=== PATIENT | male | born 1980 | race Caucasian/White ===

== ENCOUNTER 2017-11-04 17:46 | Emergency (ER) | payer OTHER, SELFPAY ==
[2017-11-04 17:47] VITALS: BP 168/70; PULSE 74; RESP 16; TEMP 36.9; O2SAT 99; BMI 28.5
--- NOTE | 2017-11-04 18:18 | PC.NURSE ---
brenton from pharmacy called back as is going to call us back
--- NOTE | 2017-11-04 18:27 | HMH.EDGENADL ---
ED Disposition Clinical Impression: Needle stick injury with contaminated needle Disposition: Home, Self-Care Condition on Discharge: Good Additional Instructions: See Dr. Dumont in one to two days for further recommendations regarding your current medication regimen as well as to review appropriate intervals for repeat laboratory testing. You are ok to return to work duties as per usual. Recommend strict condom use/safe sex practices until otherwise counseled by your primary care physician following interval testing. Rx's for HIV have been written, and follow up with Dr. Dumont if you are experiencing any side effects that may prevent you from being able to take the prescribed medications in the appropriate time intervals. Prescriptions: Emtricitabine/Tenofovir (Tdf) [Truvada 200/300 mg Tablet] 1 each PO ONCE #30 tab NS Raltegravir Potassium [Isentress 400mg] 400 mg PO BID #60 tab NS Referrals: Christiano Dumont MD [Primary Care Provider] - - Critical Care Critical Care Time: No Attestation: On 11/04/17, the high probability of a clinically significant, sudden or life threatening deterioration of the following system(s) required my full and direct attention, intervention and personal management. The time I documented below is in addition to time spent performing reported procedures but includes the following listed in this critical care notation. Medical Decision Making Vital Signs: 11/04/17 17:47 Temperature 98.5 F Temperature Source Oral Pulse Rate [Left Brachial] 74 Respiratory Rate 16 Blood Pressure [Right Arm] 168/70 Blood Pressure Mean [Right Arm] 102 Blood Pressure Source [Right Arm] Automatic Cuff Blood Pressure Position [Right Arm] Sitting 02 Sat by Pulse Oximetry 99 Oxygen Delivery Method Room Air - Lab Data Lab results reviewed: Yes: I reviewed the patient's lab results. Lab Results 11/04/17 18:10: WBC 6.6, RBC 5.21, Hgb 16.1, Hct 49.0, MCV 94.0, MCH 31.0, MCHC 32.9, RDW 12.2, Plt Count 299, MPV 8.0, Neut % (Auto) 65.9, Lymph % (Auto) 26.2, [place] % (Auto) 5.9, Eos % (Auto) 1.1, Baso % (Auto) 0.8, Neut # (Auto) 4.4, Lymph # (Auto) 1.7, [place] # (Auto) 0.4, Eos # (Auto) 0.1, Baso # (Auto) 0.1 11/04/17 18:10: HIV 1&2 Antibody Rapid Non-reactive Reviewed. Other labs are send out. Result diagrams: 11/04/17 18:10 Orders (Tests/Meds): ED MEDICATIONS Discontinued Medications Generic Name Dose Route Start Last Admin Trade Name Dipesh PRN Reason Stop Dose Admin Emtricitabine/Tenofovir 1 each 11/04/17 18:46 11/04/17 18:49 Truvada 200/300 Mg Tablet PO 11/04/17 18:47 1 each ONCE ONE Administration Raltegravir 400 mg 11/04/17 18:47 11/04/17 18:49 Isentress 400mg PO 11/04/17 18:48 400 mg ONCE ONE Administration ORDERS Category Date Time Status Comprehensive Metabolic Panel Stat Lab 11/04/17 18:11 Ordered HBsAg Screen Stat Lab 11/04/17 18:11 Ordered HCV RT-PCR, Quant (Non-Graph) Stat Lab 11/04/17 18:11 Ordered HIV Panel [id number] Stat Lab 11/04/17 18:11 Ordered - Scott Inquiry Pt receiving controlled substance: No Medical Decision Making Narrative: I consulted with pharmacist computer applications instructor to review HIV prophylaxis dosing and confirmed Truvada and Isintress now and Rx's for same. I have ordered these medications to be administered now in the ED in terms of initial dose as recommended. I have reviewed the risks vs. benefits of HIV prophylaxis. The index patient's old labs have been reviewed and she likely has Hep B and tested positive for Hep C antibodies, which puts her also in a high risk category for HIV. It is possible for her to test negative and not yet have seroconverted to HIV. I feel that my patient, Mr. Summers, is at risk for HIV exposure today. I have recommended prophylaxis at this time to the patient, and reviewed side effects and need for follow up testing regarding Hep C and HIV exposure, as well as strict condom use until cleared by his PCP following inte
[2017-11-04 18:30] LABS: Basophils # 0.1 K/mm3 (0-0.2); Basophils % 0.8 % (0.1-2.0); Eosinophils # 0.1 K/mm3 (0.0-0.4); Eosinophils % 1.1 % (0.1-12.0); Hemoglobin 16.1 g/dL (14.1-18.0); Lymphocytes # 1.7 K/mm3 (0.7-4.5); Lymphocytes % 26.2 K/mm3 (10-50); Mean Corpuscular HGB Conc 32.9 g/dL (31.8-35.4); Monocytes # 0.4 K/mm3 (0.1-1.0); Monocytes % 5.9 % (1.7-9.3); Neutrophils # 4.4 K/mm3 (1.8-7.8); Neutrophils % 65.9 % (37.0-80.0); Platelet Count 299 K/mm3 (142-424); Red Blood Count 5.21 M/mm3 (4.60-6.20); Red Cell Distribution Width 12.2 % (11.5-17.5); White Blood Count 6.6 K/mm3 (4.8-10.8)
--- NOTE | 2017-11-04 18:44 | ED_ITS ---
ED Disposition Clinical Impression: Needle stick injury with contaminated needle Disposition: Home, Self-Care Condition on Discharge: Good Additional Instructions: See Dr. Dumont in one to two days for further recommendations regarding your current medication regimen as well as to review appropriate intervals for repeat laboratory testing. You are ok to return to work duties as per usual. Recommend strict condom use/safe sex practices until otherwise counseled by your primary care physician following interval testing. Rx's for HIV have been written, and follow up with Dr. Dumont if you are experiencing any side effects that may prevent you from being able to take the prescribed medications in the appropriate time intervals. Prescriptions: Emtricitabine/Tenofovir (Tdf) [Truvada 200/300 mg Tablet] 1 each PO ONCE #30 tab NS Raltegravir Potassium [Isentress 400mg] 400 mg PO BID #60 tab NS Referrals: Christiano Dumont MD [Primary Care Provider] - - Critical Care Critical Care Time: No Attestation: On 11/04/17, the high probability of a clinically significant, sudden or life threatening deterioration of the following system(s) required my full and direct attention, intervention and personal management. The time I documented below is in addition to time spent performing reported procedures but includes the following listed in this critical care notation. Medical Decision Making Vital Signs: 11/04/17 17:47 Temperature 98.5 F Temperature Source Oral Pulse Rate [Left Brachial] 74 Respiratory Rate 16 Blood Pressure [Right Arm] 168/70 Blood Pressure Mean [Right Arm] 102 Blood Pressure Source [Right Arm] Automatic Cuff Blood Pressure Position [Right Arm] Sitting 02 Sat by Pulse Oximetry 99 Oxygen Delivery Method Room Air - Lab Data Lab results reviewed: Yes: I reviewed the patient's lab results. Lab Results 11/04/17 18:10: WBC 6.6, RBC 5.21, Hgb 16.1, Hct 49.0, MCV 94.0, MCH 31.0, MCHC 32.9, RDW 12.2, Plt Count 299, MPV 8.0, Neut % (Auto) 65.9, Lymph % (Auto) 26.2 , [place] % (Auto) 5.9, Eos % (Auto) 1.1, Baso % (Auto) 0.8, Neut # (Auto) 4.4, Lymph # (Auto) 1.7, [place] # (Auto) 0.4, Eos # (Auto) 0.1, Baso # (Auto) 0.1 11/04/17 18:10: HIV 1&2 Antibody Rapid Non-reactive Reviewed. Other labs are send out. Result diagrams: 11/04/17 18:10 Orders (Tests/Meds): ED MEDICATIONS Discontinued Medications Generic Name Dose Route Start Last Admin Trade Name Dipesh PRN Reason Stop Dose Admin Emtricitabine/Tenofovir 1 each 11/04/17 18:46 11/04/17 18:49 Truvada 200/300 Mg Tablet PO 11/04/17 18:47 1 each ONCE ONE Administration Raltegravir 400 mg 11/04/17 18:47 11/04/17 18:49 Isentress 400mg PO 11/04/17 18:48 400 mg ONCE ONE Administration ORDERS Category Date Time Status Comprehensive Metabolic Panel Stat Lab 11/04/17 18:11 Ordered HBsAg Screen Stat Lab 11/04/17 18:11 Ordered HCV RT-PCR, Quant (Non-Graph) Stat Lab 11/04/17 18:11 Ordered HIV Panel [id number] Stat Lab 11/04/17 18:11 Ordered - Scott Inquiry Pt receiving controlled substance: No Medical Decision Making Narrative: I consulted with pharmacist radiation control worker to review HIV prophylaxis dosing and confirmed Truvada and Isintress now and Rx's for same. I have ordered these medications to be administered now in the ED in terms of initial dose as recom
[2017-11-04 18:56] LABS: HIV AB(1/2) Exposures Non-Reactive (Non-Reactiv)
[2017-11-04 19:06] LABS: Alanine Aminotransferase 44 U/L (12-78); Albumin Level 4.9 gm/dL (3.4-5.0); Albumin/Globulin Ratio 1.2 (1.1-1.8); Alkaline Phosphatase 106 U/L (46-116); Anion Gap 13.9 mEq/L (5-15); Aspartate Amino Transferase 24 U/L (15-37); Bilirubin,Total 0.4 mg/dL (0.2-1.0); Blood Urea Nitrogen 13 mg/dL (7-18); Calcium 9.4 mg/dL (8.5-10.1); Carbon Dioxide 29 mmol/L (21.0-32.0); Chloride 102 mmol/L (98-107); Creatinine Clearance Estimated 132 mL/min (0-300); Creatinine,Serum 1.14 mg/dL (0.70-1.30); Estimated Glomerular Filt Rate 73 ml/min (>60); GFR (African American) 88 ML/MIN (>60); Globulin 4.1 gm/dl (1.3-3.2); Glucose 99 mg/dL (74-106); Potassium 3.9 mmoL/L (3.5-5.1); Sodium 141 mmol/L (136-145)
[2017-11-04 19:13] VITALS: BP 152/70; PULSE 85; RESP 14; TEMP 36.7; O2SAT 98
[2017-11-06 06:20] LABS: HIV Screen 4th Generation wRfx Non Reactive (Non Reactive)
[2017-11-07 17:14] LABS: Hepatitis B Surface Antigen Negative (Negative)
== END 2017-11-04 19:15 | disposition home or self-care (01) ==
PROVIDERS: Emergency Provider Emergency Medicine; Family Provider Family Medicine; PCP Family Medicine
DX: S61.230A Puncture wound without foreign body of right index finger without damage to nail, initial encounter (principal); W45.8XXA Other foreign body or object entering through skin, initial encounter; Y92.69 Other specified industrial and construction area as the place of occurrence of the external cause
CPT/HCPCS: 36415; 80053; 85025; 86703; 87340; 99282; G0432

== ENCOUNTER 2020-05-26 02:53 | Emergency (ER) | payer OTHER, SELFPAY ==
--- NOTE | 2020-05-26 02:11 | ECG_ITS ---
APPROVED REPORT Exam: Resting ECG HR:70 bpm ECG Measurements Heart Rate 70 AXES ID 142 P 49 QRSd 124 QRS 29 QT 394 T 57 QTc 425 <Conclusion> Normal sinus rhythm with sinus arrhythmia Nonspecific intraventricular conduction delay Borderline ECG Electronically signed by : Saul Fletcher, 05/28/2020 21:17:34
[2020-05-26 02:54] VITALS: BP 197/116; PULSE 87; RESP 16; O2SAT 98; BMI 27.6
[2020-05-26 03:07] LABS: Basophils # 0.1 K/mm3 (0-0.2); Basophils % 0.8 % (0.1-2.0); Eosinophils # 0.2 K/mm3 (0.0-0.4); Eosinophils % 1.6 % (0.1-12.0); Hematocrit 46.5 % (42.0-52.0); Hemoglobin 15.8 g/dL (14.1-18.0); Lymphocytes # 3.6 K/mm3 (0.7-4.5); Lymphocytes % 34.3 % (10-50); Mean Corpuscular HGB Conc 33.9 g/dL (31.8-35.4); Mean Corpuscular Hemoglobin 32.5 pg (27.0-31.2); Mean Corpuscular Volume 95.8 fl (80-94); Mean Platelet Volume 8.4 fl (7.4-10.4); Monocytes # 0.6 K/mm3 (0.1-1.0); Monocytes % 5.4 % (1.7-9.3); Neutrophils % 57.8 % (37.0-80.0); Platelet Count 266 K/mm3 (142-424); Red Blood Count 4.85 M/mm3 (4.60-6.20); Red Cell Distribution Width 12.7 % (11.5-17.5); White Blood Count 10.4 K/mm3 (4.8-10.8)
[2020-05-26 03:12] LABS: Chloride 99 mmol/L (98-107); Potassium 3.9 mmoL/L (3.5-5.1); Sodium 139 mmol/L (136-145)
[2020-05-26 03:15] LABS: Anion Gap 14.9 mEq/L (5-15); Blood Urea Nitrogen 16 mg/dl (9-20); Carbon Dioxide 29 mmol/L (22.0-30.0); Creatinine Clearance Estimated 114 mL/min (50-200); Estimated Glomerular Filt Rate 67 ml/min (>60); GFR (African American) 82 ML/MIN (>60); Glucose 105 mg/dl (74-100)
[2020-05-26 03:31] VITALS: BP 154/108; PULSE 75; RESP 18; TEMP 36.8; O2SAT 98
[2020-05-26 03:49] LABS: Troponin I < 0.01 ng/ml (0.00-0.034)
--- NOTE | 2020-05-26 04:52 | HMH.EDGENADL ---
ED Disposition Clinical Impression: Exposure to methamphetamine Disposition: Home, Self-Care Condition on Discharge: Good Referrals: PCP,No [Primary Care Provider] - - Critical Care Critical Care Time: No Attestation: On 05/26/20, the high probability of a clinically significant, sudden or life threatening deterioration of the following system(s) required my full and direct attention, intervention and personal management. The time I documented below is in addition to time spent performing reported procedures but includes the following listed in this critical care notation. Medical Decision Making - Medical Records Medical records reviewed: Yes: I reviewed the patient's medical records. - Scott Inquiry Pt receiving controlled substance: No Vital Signs: 05/26/20 02:54 05/26/20 03:31 Temperature 98.2 F Temperature Source Oral Pulse Rate [Right Brachial] 87 75 Respiratory Rate 16 18 Blood Pressure [Right Arm] 197/116 H 154/108 H Blood Pressure Mean [Right Arm] 143 123 Blood Pressure Source [Right Arm] Automatic Cuff Automatic Cuff Blood Pressure Position [Right Arm] Sitting Sitting 02 Sat by Pulse Oximetry 98 98 Oxygen Delivery Method Room Air Room Air - Lab Data Lab results reviewed: Yes: I reviewed the patient's lab results. Lab Results 05/26/20 03:00: WBC 10.4, RBC 4.85, Hgb 15.8, Hct 46.5, MCV 95.8 H, MCH 32.5 H, MCHC 33.9, RDW 12.7, Plt Count 266, MPV 8.4, Neut % (Auto) 57.8, Lymph % (Auto) 34.3, [place] % (Auto) 5.4, Eos % (Auto) 1.6, Baso % (Auto) 0.8, Neut # (Auto) 6.0, Lymph # (Auto) 3.6, [place] # (Auto) 0.6, Eos # (Auto) 0.2, Baso # (Auto) 0.1 05/26/20 03:00: Sodium 139, Potassium 3.9, Chloride 99, Carbon Dioxide 29, Anion Gap 14.9, BUN 16, Creatinine 1.20, Estimated Creat Clear 114, Estimated GFR 67, Est GFR ( Amer) 82, Glucose 105 H, Calcium 10.0, Troponin I < 0.01 Result diagrams: 05/26/20 03:00 05/26/20 03:00 Orders (Tests/Meds): ED MEDICATIONS Generic Name Dose Route Start Last Admin Trade Name Freq PRN Reason Stop Dose Admin Sodium Chloride 1,000 mls @ 999 mls/hr 05/26/20 03:00 Sod Chlor 0.9% 1000ml Bag IV 05/26/20 04:00 .[id number] Discontinued Medications Generic Name Dose Route Start Last Admin Trade Name Freq PRN Reason Stop Dose Admin Diazepam 10 mg 05/26/20 02:58 Valium 10mg/2ml Syringe IV 05/26/20 02:59 ONCE ONE ORDERS Category Date Time Status Troponin I Q3H Lab 05/26/20 06:00 Ordered Troponin I Q3H Lab 05/26/20 09:00 Ordered General Adult HPI - General Chief complaint: Recheck/Abnormal Lab/Rx Stated complaint: contact with illegal drugs while working Time Seen by Provider: 05/26/20 04:52 Mode of Arrival: Family Vehicle Limitations: No Limitations Description of Symptoms (Recalled from ER Triage Doc. 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 officer stated he followed normal protocols, however, may have had contact with the drug in some way as he began feeling like his chest was tight, weird and jittery. bp is elevated, as well as his heart rate. - History of Present Illness HPI narrative: A 40-year-old male presents the emergency department after detaining a subject that had methamphetamines. 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 Patient may have had exposure. When he came into the ED with the detainee he was having heart palpitations tachycardia and feeling very unusual. Patient also developed some substernal chest pain. Patient denies any underlying health problems. Patient denies any other symptoms.Patient denies any recent cough or shortness of breath, patient denies any sore throat or headache, patient denies any loss of taste or smell, patient denies any malaise or fatigue, patient zuri
[2020-05-26 05:05] VITALS: BP 133/76; PULSE 79; RESP 16; TEMP 36.7; O2SAT 98
== END 2020-05-26 05:07 | disposition home or self-care (01) ==
PROVIDERS: Emergency Provider Family Medicine
DX: Z77.29 Contact with and (suspected) exposure to other hazardous substances (principal); R07.89 Other chest pain; R00.0 Tachycardia, unspecified; Y99.0 Civilian activity done for income or pay
CPT/HCPCS: 80048; 84484; 85025; 93005; 96365; 96375; 99283

== ENCOUNTER → 2020-12-14 19:58 | Outpatient (CLI) | payer BC, SELFPAY ==
--- NOTE | 2020-12-15 09:10 | PC.NURSE ---
voicemail left for patient to return call re: covid results
--- NOTE | 2020-12-15 09:28 | PC.NURSE ---
patient notified of positive covid results
== END ==
PROVIDERS: PCP Family Medicine; Visit Provider Nurse Practitioner Family
DX: Z20.822 Contact with and (suspected) exposure to COVID-19 (principal); U07.1 COVID-19
CPT/HCPCS: U0003

== ENCOUNTER 2022-09-02 16:57 | Emergency (ER) | payer BC, SELFPAY ==
[2022-09-02 19:04] VITALS: BP 121/86; PULSE 76; RESP 18; TEMP 36.9; O2SAT 99; BMI 29.9
--- NOTE | 2022-09-02 19:04 | EXP.UTC ---
Discharge Plan Disposition Patient Disposition: Home, Self-Care Condition: Good Prescriptions Prescriptions: New prednisone 20 mg tablet 20 mg PO BID Qty: 10 0RF amoxicillin-pot clavulanate 875-125 mg Tablet 1 tab PO Q12H Qty: 20 0RF No Action emtricitabine-tenofovir (TDF) [Truvada] 1 EACH tablet 1 each PO ONCE Qty: 30 0RF raltegravir [Isentress] 400 MG tablet 400 mg PO BID Qty: 60 0RF Referrals Follow up/Referrals: Nereyda Cole APRN [Primary Care Provider] - See instructions Activity Restrictions/Add. Instructions Additional Instructions/Restrictions: *Monitor Temp, Over the counter Motrin or Tylenol as directed/as needed Tylenol every 4 hours and Motrin every 6 hours (as long as your family doctor has told you that you can take it) for fever or pain. and straight to ER if unable to lower temp less than 101.0 after medication given *Warm salt water gargles may help to soothe the throat *Throat Lozenges? *Warm fluids like tea with honey may help to soothe the throat? *Sleep elevated *Humidifier/Vaporizer Take medication as prescribed Follow up IMMEDIATELY for new or worsening symptoms or no Noticeable improvement over the next 48-72 hours. 911 for difficulty breathing or swallowing Clinical Impressions Clinical Impression: Sinusitis Instructions Patient Instructions: DI for Sinusitis, Sinusitis Discharge ED Provider: Samantha Ortega [facility] General Stated complaint: congestion, peterson, runny nose Time Seen by Provider: 09/02/22 19:04 History of Present Illness Provider Complaint: Patient states that he has been having sinus pain and pressure for about 2 weeks States that he thought it would get better but it hasnt so today when he was still having pressure he came in Related Data Previous Rx's Medication Instructions Recorded Isentress 400 mg tablet 400 mg PO BID work exposure #60 11/04/17 (raltegravir) tabs Truvada 200 mg-300 mg tablet 1 each PO ONCE work exposure #30 11/04/17 (emtricitabine-tenofovir (TDF)) tabs amoxicillin 875 mg-potassium 1 tab PO Q12H #20 tabs 09/02/22 clavulanate 125 mg tablet prednisone 20 mg tablet 20 mg PO BID #10 tabs 09/02/22 Allergies Allergy/AdvReac Type Severity Reaction Status Date / Time No Known Drug Allergies Allergy Verified 06/06/21 14:09 [facility] Social History Smoking Status: Never smoker alcohol intake: never current occupational status: employed Travel in the last 8 weeks: None ROS Obtained: Yes All systems reviewed & no additional complaints except as documented and Yes Systems reviewed as appropriate & no additional complaints except as documented Constitutional Constitutional: Reports system reviewed and no additional complaints, except as documented, Reports as per HPI and Reports headache(s) ENT Ears, Nose, Mouth, and Throat: Reports system reviewed and no additional complaints, except as documented, Reports as per HPI, Reports headache(s), Reports sinus pain and Reports sinus pressure Cardiovascular Cardiovascular: Reports system reviewed and no additional complaints, except as documented and Reports as per HPI Neurologic Neurologic: Reports headache(s) Physical Exam General General appearance: alert and in no apparent distress Expanded ENT Exam Nose exam: Present sinus tenderness Respiratory Respiratory exam: Present normal lung sounds bilaterally and respiratory distress Cardiovascular Cardiovascular exam: Present regular rate, normal rhythm and normal heart sounds Neurological Exam Neurological exam: Present alert, oriented X3 and normal gait Medical Decision Making Scott Inquiry Pt receiving controlled substance: No Scott was queried for this patient: No
[2022-09-02 19:45] VITALS: BP 128/86; PULSE 73; RESP 17; TEMP 36.9; O2SAT 99
== END 2022-09-02 19:48 | disposition home or self-care (01) ==
PROVIDERS: Emergency Provider Nurse Practitioner; PCP Nurse Practitioner Family
DX: J32.9 Chronic sinusitis, unspecified (principal)
CPT/HCPCS: 99212; G0463

== ENCOUNTER → 2023-10-16 09:48 | Outpatient (CLI) | payer BC, SELFPAY ==
--- NOTE | 2023-10-16 09:51 | XR_ITS ---
FINAL REPORT CLINICAL HISTORY: Elbow pain COMPARISON: None FINDINGS: AP, oblique, and lateral views of the right elbow were obtained. There is no prior exam for comparison. There is no acute fracture or dislocation. Joint space is preserved. There is no joint effusion or other soft tissue abnormality. IMPRESSION: No acute osseous abnormality of the right elbow. Reviewed, Interpreted and Dictated by Gerard Freeman MD Transcribed by Priya Nelson Authenticated and [facility]
== END ==
PROVIDERS: PCP Internal Medicine; Visit Provider Internal Medicine
DX: M25.521 Pain in right elbow (principal)
CPT/HCPCS: 73080

== ENCOUNTER 2023-12-02 08:00 | Outpatient (RCR) | payer BC, SELFPAY ==
--- NOTE | 2023-10-22 16:27 | HMH.OTOPEV ---
OT Inpatient Evaluation Rehab OT Outpatient Eval Start: 10/22/23 16:09 Freq: Status: Active Protocol: Document 10/22/23 16:09 RMARSHALL (Rec: 10/22/23 16:27 RMARSHALL [id number]) E-signed By Megan Goode, OT Outpatient Therapy Subjective History Subjective History Pt is a 43 year old male who reports to therapy for initial evaluation to right elbow. Pt reports he has been having pain at the lateral and medial aspect of right elbow for ~3 months. He does not recall a specific injury causing this pain to begin. 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 Both jobs consist of repetitive motion/ gripping with R elbow/hand. 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 Pt is right hand dominant. Pt's AROM and strength are slightly limited at right elbow. However, pt's right hand switchboard wire worker helper strength is signficantly limited compared to left. Pt will continue to be seen in order to address all deficits at right elbow. STG R hand switchboard wire worker helper strength: 80 lbs LTG R hand switchboard wire worker helper strength: 100 lbs Short term goals: 1. 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 2. Pt will increase R elbow supination to 85 degrees degrees to complete upper body dressing independently ~50% of the time.. 3. Pt will increase strength to 4-/5 throughout right elbow in order to complete heavier household and work tasks ( laundry, mopping, vacuuming) independently ~50% of the time . 4. Pt will verbalize decreased pain levels at worst in R elbow to a 4/10 in order to complete daily ADLs independently ~50% of the time . 5. Pt will demonstrate improved endurance by completing right elbow exercises for ~10 minutes prior to rest break in order to increase his tolerance for daily work activities. 6. Pt will demonstrate independence with HEP of AAROM exercises to increase overall functional use of Right elbow in daily activities ~75% of the time. 7. Pt will improve right hand switchboard wire worker helper strength to 80 lbs in order to be able to open jars/ containers independently ~50% of the time. 8. Pt will decrease Quick Dash score to 30 or below to demonstrate improvement with completion of daily activities to reach PLOF. 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 2. Pt will increase R elbow supination to 90 degrees degrees to complete upper body dressing independently ~75% of the time. 3. Pt will increase strength to 4/5 throughout right elbow in order to complete heavier household and work (laundry, mopping, vacuuming) independently ~75% of the time . 4. Pt will verbalize decreased pain levels at worst in R elbow to a 3/10 in order to complete daily ADLs independently ~75% of the time . 5. Pt will demonstrate improved endurance by completing right elbow exercises for ~20 minutes prior to rest break in order to increase his tolerance for daily work activities. 6. Pt will demonstrate independence with HEP of AAROM exercises to increase overall functional use of Right elbow in daily activities ~100% of the time. 7. Pt will improve right hand switchboard wire worker helper strength to 100 lbs in order to be able to open jars/ containers independently ~75% of the time. 8. Pt will decrease Quick Dash score to 20 or below to demonstrate improvement with completion of daily activities to reach PLOF. New diagnosis of cancer in past 12 No months? Chief Complaint Pain,Weakness,Decreased Civil Laboratory Technician Strength Symptom Type Ache,Throb,Sharp,Dull Symptoms Relieved By Rest/Positioning Symptoms Aggravated By Physical Activity,Lifting Prior Functional Limitations None Current Functional Limitations Reaching,Lifting,Sleeping, Recreation Activity Symptom Description Intermittent,Activity Dependent Level of pain today (0-10) 4 Pain scale - at its best (0-10) 0 Pain scale - at its worst (0-10) 5 Shoulder/Elbow Eval Shoulder Objective Measurements Elbow Objective Measurements Elbow ROM Right Elbow Extension Active Range of Motion ( -10 degrees degrees) Elbow Flexion Active Range of Motion ( 135 degrees degrees) Elbow Pronation of Forearm Range of 90 degrees Motion (degrees) Elbow Supination of Forearm Range of 80 degrees Motion (degrees) Elbow MMT Elbow Flexion Strength Grade 3+ Fair+ Elbow Extension Strength Grade 3+ Fair+ Supination Strength Grade 3+ Fair+ Pronation Strength Grade 3+ Fair+ Wrist/Hand Eval Civil Laboratory Technician/Pinch Strength Right Civil Laboratory Technician Strength Measurement (lbs) 65 Left Civil Laboratory Technician Strength Measurement (lbs) 120 QuickDA Activities Please rate your ability to do the following activities in the last week by selecting the number below the appropriate response. 1. Open a tight or new jar. Severe difficulty 2. Do heavy jet dyeing machine tender (e.g., wash Moderate difficulty roth, floors). 3. Carry a shopping bag or briefcase. Mild difficulty 4. Wash your back. Mild difficulty 5. Use a knife to cut food. Moderate difficulty 6. Recreational activities in which you Severe difficulty take some force or impact through your arm, shoulder, or hand (e.g., golf, hammering, tennis, etc.). 7. During the past week, to what extent Quite a bit has your arm, shoulder or hand problem interfered with your normal social activities with family, friends, neighbors or groups? 8. During the past week, were you Moderately limited limited in your work or other regular daily activites as a result of your arm, shoulder or hand problem? 9. Arm, shoulder or hand pain. Severe 10. Tingling (pins and needles) in your None arm, shoulder or hand. 11. During the past week, how much No difficulty difficulty have you had sleeping because of the pain in your arm, shoulder or hand? Quick DASH 31 Work Module (optional) The following questions ask about the impact of your arm, shoulder or hand problem on your ability to work (including homemaking if that is your main work role). 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 Yes 1. Using your usual technique for your Moderate difficulty work? 2. Doing your usual work because of arm, Mild difficulty shoulder or hand pain? 3. Doing your work as well as you would Moderate difficulty like? 4. Spending your usual amount of time Moderate difficulty doing your work? Quick Dash Work Module Score 11 OT Outpatient Assessment Impairments Problems/Impairments Palpation Tenderness,Impaired Range of Motion,Impaired Strength,Impaired Endurance, Impaired Lifting,Impaired Dressing,Impaired Household Care,Impaired Recreational Activities,Impaired Work Activities,Subjective C/O Pain Prognosis Rehab Potential Good Clinical Impression Consistent with Diagnosis Yes Short Term Goals Number of Weeks 3 see history Increase Range of Motion Yes Increase Strength Yes Increase Endurance Yes Decrease Subjective C/O Pain Yes Patient to be Ind w/ HEP Yes Improve Quick Dash Score Yes Merchandise Execution Leader Goals Number of Weeks 6 see history Outpatient Therapy Plan of Care Treatment Plan May Include Therapeutic Exercise Including Home Yes Exercise Program Manual Therapy Techniques Yes Neuromuscular Re-education Yes Therapeutic Activities to Return to Yes Previous Functional/Work Level Dry Needling Yes Thermal Modalities Yes Electrical Stimulation Yes Ultrasound/Phonophoresis Yes Iontophoresis Yes Orthotics/Bracing/Splinting Yes Massage Yes Eval/Re-Eval Yes Frequency Times per week 2 Duration Number of Weeks 6 Addendums This patient is a candidate for social No or vocational rehab? Patient/Guardian verbally acknowledges Yes understanding of treatment program and consents to further treatment? Patient/Guardian verbally acknowledges Yes understanding of diagnosis, prognosis and goals for treatment? Eval Complexity OT Charge 97961 - Moderate Complexity PHYSICIAN CERTIFICATION: I certify the specified therapy services for Mike Summers are required, authorized, and reviewed every 30 days.
--- NOTE | 2023-11-18 09:51 | HMH.RHREAS ---
Rehab Reassessment Rehab OP Re-assessment Start: 10/22/23 16:09 Freq: Status: Active Protocol: Document 11/18/23 08:49 RMARSHALL (Rec: 11/18/23 09:50 RMARSHALL [id number]) E-signed By Megan Goode OT Rehab Re-assessment Subjective Subjective I still have the pain. Objective Objective Notes Pt continues to be seen twice a week in order to address left elbow deficits. Each session, pt engages in plastics fabricator or welder and elbow strengthening, AAROM , and AROM exercises. Pt is also passively ranged at right wrist and elbow in all planes (flex, ext, RD, UD, Supination, and pronation). Modalities are provided in order to decrease pain/ inflammation. Assessment Progress Assessment Slower Than Expected Assessment Notes Pt is very consistent about attending therapy sessions. Pt demonstrates improvement with overall AROM and strength at right elbow. Pt's plastics fabricator or welder strength has also improved since evaluation. However, pt continues to complain of continues significant pain. He reports his worst pain at 8 /10. Normally it is a sharp stabbing pain quickly when he is gripping. 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 Pt is going to see ortho this week for an evaluation since he is still experiencing pain. Current R elbow AROM: Flex: 140 degrees Ext: -5 degrees Sup: 90 degrees Pro: 90 degrees Current R hand plastics fabricator or welder strength: 100 lbs Patient goals met STG R hand plastics fabricator or welder strength: 80 lbs LTG R hand plastics fabricator or welder strength: 100 lbs Short term goals: 1. Pt will increase right elbow extension to -5 degrees in order to complete daily household worker independently ~50% of the time. 2. Pt will increase R elbow supination to 85 degrees degrees to complete upper body dressing independently ~50% of the time.. 3. Pt will increase strength to 4-/5 throughout right elbow in order to complete heavier household and work tasks ( laundry, mopping, vacuuming) independently ~50% of the time . 5. Pt will demonstrate improved endurance by completing right elbow exercises for ~10 minutes prior to rest break in order to increase his tolerance for daily work activities. 6. Pt will demonstrate independence with HEP of AAROM exercises to increase overall functional use of Right elbow in daily activities ~75% of the time. 7. Pt will improve right hand plastics fabricator or welder strength to 80 lbs in order to be able to open jars/ containers independently ~50% of the time. Revised Goals Short Term goals 4. Pt will verbalize decreased pain levels at worst in R elbow to a 4/10 in order to complete daily ADLs independently ~50% of the time . 8. Pt will decrease Quick Dash score to 30 or below to demonstrate improvement with completion of daily activities to reach PLOF. detention goals: 1. Pt will increase right elbow extension to 0 degrees in order to complete daily household worker independently ~75% of the time. 2. Pt will increase R elbow supination to 90 degrees degrees to complete upper body dressing independently ~75% of the time. 3. Pt will increase strength to 4/5 throughout right elbow in order to complete heavier household and work (laundry, mopping, vacuuming) independently ~75% of the time . 4. Pt will verbalize decreased pain levels at worst in R elbow to a 3/10 in order to complete daily ADLs independently ~75% of the time . 5. Pt will demonstrate improved endurance by completing right elbow exercises for ~20 minutes prior to rest break in order to increase his tolerance for daily work activities. 6. Pt will demonstrate independence with HEP of AAROM exercises to increase overall functional use of Right elbow in daily activities ~100% of the time. 7. Pt will improve right hand plastics fabricator or welder strength to 120 lbs in order to be able to open jars/ containers independently ~75% of the time. 8. Pt will decrease Quick Dash score to 20 or below to demonstrate improvement with completion of daily activities to reach PLOF. Plan Plan Continue with OT plan of care at this time. Frequency of Therapy 2x's a week Duration of therapy 4 more weeks Time and Billing Re-Eval Time 11 Re-Eval Billing Units 1 PHYSICIAN CERTIFICATION: I certify the specified therapy services for Mike Summers are required, authorized, and reviewed every 30 days.
== END 2023-12-02 09:00 | disposition home or self-care (01) ==
LOC: OT 08:00
PROVIDERS: PCP Internal Medicine; Visit Provider Internal Medicine
DX: M25.521 Pain in right elbow (principal)
CPT/HCPCS: 97010; 97014; 97035; 97110; 97140; 97164; 97166; G0283

== ENCOUNTER 2023-12-17 13:59 | Outpatient (CLI) | payer BC, SELFPAY ==
--- NOTE | 2023-12-17 13:59 | MR_ITS ---
FINAL REPORT CLINICAL HISTORY: Rt Elbow posterior pain COMPARISON: None FINDINGS: Multiplanar MR imaging of the right elbow was performed without contrast. Artifact obscures optimal visualization, particularly of the T2 weighted fat saturation coronal images. The bony structures are intact without evidence of fracture, bone bruise or marrow edema. There is a minimal osteochondral lesion in the capitellum. The ligaments appear intact. There is minimal abnormal signal at the insertion of the common extensor tendon. The common flexor tendon is intact. The biceps tendon is intact. The distal triceps tendon is intact. The brachialis tendon is intact. The musculature has an unremarkable appearance. No soft tissue mass or cyst is identified. No focal abnormality is identified of the ulnar nerve. IMPRESSION: Tiny osteochondral lesion of the capitellum. Partial insertional tear common extensor tendon. Reviewed, Interpreted and Dictated by Gerard Freeman MD Transcribed by Shara Mckeon Authenticated and [facility]
== END 2023-12-17 23:59 ==
LOC: RAD 13:59
PROVIDERS: PCP Internal Medicine; Visit Provider Orthopaedic Surgery
DX: M77.01 Medial epicondylitis, right elbow (principal)
CPT/HCPCS: 73221

== ENCOUNTER 2023-12-30 13:15 | Outpatient (CLI) | payer BC, SELFPAY ==
[2023-12-30 13:20] LABS: Basophils # 0.1 K/mm3 (0-0.2); Basophils % 1.5 % (0.1-2.0); Hematocrit 49.7 % (42.0-52.0); Hemoglobin 15.7 g/dL (14.1-18.0); Lymphocytes # 1.8 K/mm3 (0.7-4.5); Lymphocytes % 42.3 % (10-50); Mean Corpuscular HGB Conc 31.6 g/dL (31.8-35.4); Mean Corpuscular Hemoglobin 32.4 pg (27.0-31.2); Mean Corpuscular Volume 102.5 fl (80-94); Mean Platelet Volume 8.9 fl (7.4-10.4); Monocytes # 0.3 K/mm3 (0.1-1.0); Monocytes % 8.1 % (1.7-9.3); Platelet Count 303 K/mm3 (142-424); Red Blood Count 4.85 M/mm3 (4.60-6.20); Red Cell Distribution Width 13.3 % (11.5-17.5); White Blood Count 4.3 K/mm3 (4.8-10.8)
[2023-12-30 13:32] LABS: Alanine Aminotransferase 90 U/L (12-78); Albumin Level 4.9 g/dl (3.5-5.0); Albumin/Globulin Ratio 1.6 (1.1-1.8); Alkaline Phosphatase 74 U/L (38-126); Anion Gap 15.5 mEq/L (5-15); Aspartate Amino Transferase 64 U/L (17-59); Bilirubin,Total 0.4 mg/dl (0.2-1.3); Blood Urea Nitrogen 14 mg/dl (9-20); Calcium 9.4 mg/dl (8.4-10.2); Carbon Dioxide 27 mmol/L (22.0-30.0); Chloride 105 mmol/L (98-107); Chol/HDL Ratio 5.3 (1-3.5); Cholesterol 254 mg/dl (140-200); Estimated Glomerular Filt Rate 73 ml/min (>60); GFR (African American) 89 ML/MIN (>60); Globulin 3.1 g/dL (1.3-3.2); Glucose 86 mg/dl (74-100); HDL Cholesterol 48 mg/dl (40-60); Potassium 4.5 mmoL/L (3.5-5.1); Sodium 143 mmol/L (136-145); Triglycerides 270 mg/dl (30-150); VLDL Cholesterol 54 mg/dL (0-40)
[2023-12-30 13:43] LABS: Direct LDL Cholesterol 140.98 mg/dL (100-129)
[2023-12-30 13:47] LABS: Free T4 (Free Thyroxine) 0.85 ng/dl (0.78-2.19)
[2023-12-30 13:54] LABS: 25-OH Vitamin D, Total 25.5 ng/mL (30-100)
[2023-12-30 14:05] LABS: Thyroid Stimulating Hormone 0.85 uIU/mL (0.465-4.68)
[2023-12-30 14:56] LABS: Hemoglobin A1C 5.6 % (4.0-6.0)
== END 2023-12-30 23:59 ==
LOC: LAB.DROPOF 13:15
PROVIDERS: PCP Internal Medicine; Visit Provider Internal Medicine
DX: D72.819 Decreased white blood cell count, unspecified (principal); R74.01 Elevation of levels of liver transaminase levels; E78.00 Pure hypercholesterolemia, unspecified; E55.9 Vitamin D deficiency, unspecified; Z79.899 Other long term (current) drug therapy
CPT/HCPCS: 80053; 80061; 82306; 83036; 84439; 84443; 85025

== ENCOUNTER 2024-03-23 11:00 | Outpatient (RCR) | payer BC, SELFPAY ==
--- NOTE | 2024-03-05 10:59 | HMH.RHREAS ---
Rehab Reassessment Rehab OP Re-assessment Start: 01/30/24 10:47 Freq: Status: Active Protocol: Document 03/05/24 10:35 RMARSHALL (Rec: 03/05/24 10:59 RMARSHALL Laptop) E-signed By Megan Goode OT QuickDASH Activities Please rate your ability to do the following activities in the last week by selecting the number below the appropriate response. 1. Open a tight or new jar. Mild difficulty 2. 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 3. Carry a shopping bag or briefcase. Mild difficulty 4. Wash your back. No difficulty 5. Use a knife to cut food. No difficulty 6. Recreational activities in which you Moderate difficulty take some force or impact through your arm, shoulder, or hand (e.g., golf, hammering, tennis, etc.). 7. During the past week, to what extent Slightly has your arm, shoulder or hand problem interfered with your normal social activities with family, friends, neighbors or groups? 8. During the past week, were you Slightly limited limited in your work or other regular daily activites as a result of your arm, shoulder or hand problem? 9. Arm, shoulder or hand pain. Mild 10. Tingling (pins and needles) in your None arm, shoulder or hand. 11. During the past week, how much No difficulty difficulty have you had sleeping because of the pain in your arm, shoulder or hand? Quick DASH 18 Rehab Re-assessment Subjective Subjective I have been having more pain when I shake someone's hand. Objective Objective Notes Pt continues to be seen weekly in order to address right elbow deficits. Each session, pt receives soft tissue massage and PROM to right elbow on lateral aspect. Pt also engages in small arms repairer strengthening, right wrist/ elbow strengthening exercises, and stretching. Pt also receives modalities such as phonophoresis, e-stim, and dex patch in order to decrease pain/inflammation. 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 Pt is right hand dominant. Pt's strength at right elbow has improved, but he does continue to have pain in flexion at elbow. Pt's small arms repairer strength has slightly declined since initial evaluation. At this time he does not have a follow up with ortho, but is supposed to return for 3 month follow up for another injection. Current R hand small arms repairer strength: 100 lbs Patient goals [address], 2, and 4 Goals Not Met See below Revised Goals STG R hand small arms repairer strength: 120 lbs LTG R hand small arms repairer strength: [address] and 5 LT-5 Plan Plan Continue with OT plan of care at this time. Frequency of Therapy 1-2xs a week Duration of therapy 4 more weeks Time and Billing Re-Eval Time 11 Re-Eval Billing Units 1 PHYSICIAN CERTIFICATION: I certify the specified therapy services for Mike Summers are required, authorized, and reviewed every 30 days.
== END 2024-03-23 11:05 | disposition home or self-care (01) ==
LOC: OT 11:00
PROVIDERS: Visit Provider Orthopaedic Surgery
DX: M77.01 Medial epicondylitis, right elbow (principal)
CPT/HCPCS: 97010; 97014; 97035; 97110; 97140; 97164; 97166; G0283

== ENCOUNTER 2024-11-25 14:07 | Outpatient (CLI) | payer BC, SELFPAY ==
--- NOTE | 2024-11-25 14:07 | MR_ITS ---
FINAL REPORT CLINICAL HISTORY: Rt Elbow pain on the lateral aspect prior mri 1 year ago COMPARISON: 12/17/2023 FINDINGS: Multiplanar MR imaging of the right elbow was performed without contrast. The bony structures are intact without evidence of fracture, bone bruise or marrow edema. There is no evidence of osteochondral lesion. The ligaments appear intact. There is mild abnormal signal involving the insertion of the common extensor tendon consistent with a partial tear. This was also seen on the prior MRI of 2023. The common flexor tendon is intact. The biceps tendon is intact. The distal triceps tendon is intact. The brachialis tendon is intact. The musculature has an unremarkable appearance. No soft tissue mass or cyst is identified. No focal abnormality is identified of the ulnar nerve. IMPRESSION: Partial tear of the insertion of the common extensor tendon. Reviewed, Interpreted and Dictated by Gerard Freeman MD Transcribed by Priya Nelson Authenticated and [facility]
== END 2024-11-25 23:59 | disposition home or self-care (01) ==
LOC: RAD 14:07
PROVIDERS: PCP Internal Medicine; Visit Provider Physician Assistant
DX: M77.11 Lateral epicondylitis, right elbow (principal)
CPT/HCPCS: 73221

== ENCOUNTER 2025-06-10 10:24 | Outpatient (CLI) | payer BC, SELFPAY ==
[2025-06-10 07:54] VITALS: BMI 30.6
--- NOTE | 2025-06-10 10:27 | XR_ITS ---
FINAL REPORT TECHNIQUE: Chest PA & Lateral CLINICAL HISTORY: pre op surgery clearance COMPARISON: None FINDINGS: 2 views of the chest were performed. The heart size is normal. The mediastinum is within normal limits. There is no acute cardiopulmonary process. There are no pleural effusions. There is no pneumothorax. The bony thorax appears intact. IMPRESSION: No acute cardiopulmonary process. Reviewed, Interpreted and Dictated by Gerard Freeman MD Transcribed by Estrella Holt Authenticated and . [facility]
--- NOTE | 2025-06-10 10:45 | ECG_ITS ---
APPROVED REPORT Exam: Resting ECG HR:71 bpm ECG Measurements Heart Rate 71 AXES UT 143 P 27 QRSd 128 QRS 38 QT 374 T 50 QTc 397 Conclusion SINUS RHYTHM POSSIBLE RIGHT VENTRICULAR CONDUCTION DELAY [RSR (QR) IN V1/V2] BORDERLINE ECG UNCONFIRMED REPORT Electronically signed by : Saul Fletcher MD 06/12/2025 12:47:14
[2025-06-10 10:58] LABS: Hematocrit 44.0 % (42.0-52.0); Hemoglobin 15.0 g/dL (14.1-18.0); Immature Granulocytes % 0.3 %; Mean Corpuscular HGB Conc 34.1 g/dL (31.8-35.4); Mean Corpuscular Hemoglobin 32.0 pg (27.0-31.2); Mean Corpuscular Volume 93.8 fl (80-94); Nucleated Red Blood Cells % 0 %; Platelet Count 267 K/mm3 (142-424); Red Blood Count 4.69 M/mm3 (4.60-6.20); Red Cell Distribution Width-SD 42.3 fL; White Blood Count 9.4 K/mm3 (4.8-10.8)
[2025-06-10 11:03] LABS: Chloride 103 mmol/L (98-107); Potassium 4.2 mmoL/L (3.5-5.1); Sodium 138 mmol/L (136-145)
[2025-06-10 11:06] LABS: Anion Gap 11.2 mEq/L (5-15); Blood Urea Nitrogen 14 mg/dl (9-20); Carbon Dioxide 28 mmol/L (22.0-30.0); Creatinine Clearance Estimated 148 mL/min (50-200); Creatinine,Serum 1.00 mg/dl (0.66-1.25); Estimated Glomerular Filt Rate 81 ml/min (>60); GFR (African American) 98 ML/MIN (>60)
[2025-06-10 11:07] LABS: Calcium 9.2 mg/dl (8.4-10.2); Glucose 78 mg/dl (74-100)
== END 2025-06-10 23:59 | disposition home or self-care (01) ==
LOC: PREOP 10:25
PROVIDERS: PCP Internal Medicine; Visit Provider Orthopaedic Surgery
DX: Z01.810 Encounter for preprocedural cardiovascular examination (principal); Z01.811 Encounter for preprocedural respiratory examination; Z01.812 Encounter for preprocedural laboratory examination; R94.31 Abnormal electrocardiogram [ECG] [EKG]
CPT/HCPCS: 71046; 80048; 85025; 93005

== ENCOUNTER 2025-06-14 08:15 | Day surgery (SDC) | payer BC, SELFPAY ==
[2025-06-13 10:37] VITALS: BMI 30.6
[2025-06-14] VITALS (9 sets, daily range): BP systolic 140–165; BP diastolic 75–96; PULSE 59–85; RESP 14–20; TEMP 36.4–36.7; O2SAT 96–98
[2025-06-14] MEDS: LACTATED RINGERS 1000ML 1,000 ML 100 ML IV (08:49)
--- NOTE | 2025-06-14 09:05 | EXP.ANES.CKL ---
[facility] Disclaimer: The information contained in this section may have been updated after the patient was seen, as this information can be updated by other users. 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 Right lateral epicondylitis Elbow pain, right Needle stick injury with contaminated needle Medial epicondylitis, right elbow Surgical History [place] teeth extracted No significant past surgical history Family History Other No significant family history Social History Smoking Status: Never smoker alcohol intake: never substance use type: denies use current occupational status: employed Travel in the last 8 weeks?: Inside the [place] Have you lived/traveled outside [place] in past 30 days?: No Contact w/someone who lives/traveled outside US past 30 days?: No Exposure to someone with infectious disease in past 14 days?: No Do you have a fever (greater than 100.4 F or 38 C)?: No Have you tested positive for COVID-19?: No Exposed to someone with COVID-19 in past 14 days?: No Do you have a sore throat?: No Do you have a cough?: No Do you have any weakness?: No Do you have any diarrhea?: No Are you experiencing any unusual bleeding?: No Do you have any muscle aches/pain?: No Do you have any abdominal pain?: No Are you experiencing loss of taste or smell?: No [facility] Anesthesia Checklist Patient Identification Patient Identification: Arm Band and Verbal (Name & ) Structural Data Admitted From: Home Planned Operative Procedure/s: Perc. tenotomy of right elbow Verified Documents: Surgical Consent NPO Status Verified Time NPO: 00:00 Chart Verification Results Verified: ECG Additional verifications Anesthesia Reactions: No Hx Blood Transfusions: No Blood Transfusion Reaction: No Airway Assessment Mallampati Score:: Class II C-Spine Mobility Assessed: Yes TMJ Mobility Assessed: Yes Dentition: Good Dentition Neurological Assessment Level of Consciousness: Awake, Alert and Appropriate Hx Seizures: No Numbness or tingling in extremities: No Anesthesia Plan Anesthesia Risk discussed: Yes Anesthesia Plan: Verified ASA Class: II Anesthesia Type: General
[2025-06-14] MEDS: BUPIVACAINE 0.5% 30ML VIAL 150 MG (10:13)
--- NOTE | 2025-06-14 10:37 | P.PNANES_ITS ---
[facility] Anesthesia Record Part I Anesthesia Record I Intake, IV Amount: 1,200 Hydration: Adequate Estimated blood loss (mL): 0 Urine output (mL): 0 Blood Pressure: 159/80 SaO2: 97 Pulse Rate: 85 Airway Patency: Patent Respiratory Rate: 14 Temperature: 97.5 F Patient is:: Awake and Stable Stable to PACU at:: 10:35
--- NOTE | 2025-06-14 11:06 | P.OP_ITS ---
Date of procedure: 06/14/25 Pre-op Diagnosis:: Right elbow recurrent lateral epicondylitis Post-op Diagnosis:: Same Procedure performed:: Right elbow ultrasound-guided ultrasonic tenotomy lateral epicondyle (Tenex) Surgeon:: Mark Drummond DO Footwear Machinery Instructor(s):: Puneet ROSARIO AUDIOMETRIC TECHNICIAN:: Juventino Contreras Anesthesia: GETA Estimated blood loss (mL): 0 Operative findings:: See dictation Operative note:: Patient identified preoperatively. Right elbow marked with yes my initials. The points of maximal and tenderness also marked per patient guidance. Patient is then taken the operating room placed bilaterally bed general anesthesia was administered airway secured. Right upper extremity was prepped and draped normal sterile fashion. Once prepped and draped final operative timeout performed to identify proper patient procedure and extremity. Everyone involved the case agreed. Is no counter indication beginning. Did receive preoperative antibiotics. The Tenex handpiece was primed sterile ultrasound guide was utilized. Ultrasound evaluation of the elbow was performed. There were hyperechoic areas at the common extensor tendon origin that corresponded with the newsome for the points of maximal tenderness preoperatively. A needle was utilized under direct visualization with the ultrasound for proper trajectory into the area of concern at the lateral epicondyle. A small 11 blade was used then to make a stephany in the skin and then the ultrasonic handpiece was utilized and placed into the elbow. Under direct visualization with the ultrasound the harmonic ultrasonic device was utilized in its normal fashion with head and out movements to debride the area of concern at the lateral epicondyle. This was directly visualized to the ultrasound. Total cutting time for the procedure 47 seconds. Ultrasonic probe removed Steri-Strips placed in the focal along with a sterile dressing followed by an Sravan bandage patient waken anesthesia taken recovery in stable condition. Condition: stable Disposition: PACU Complications:: None apparent
--- NOTE | 2025-06-15 07:49 | EXP.ANES.II ---
[facility] Anesthesia Record Part II Anesthesia Record Part II Discharge Time: 11:05 Destination: Surgical Day Care (OP Surgery) PACU nurse assessment reviewed?: Yes Patient Condition:: Good Anesthesia Complications:: None Swallowing reflex intact?: Yes Airway Patency: Patent Cyanosis?: No Blood Pressure: 149/90 SaO2: 97 Respiratory Rate: 18 Pulse Rate: 60 Temperature: 98.1 F Mental Status: Alert & Oriented Pain level:: 0 Nausea and/or vomitting:: None Intake, IV Amount: 0 Hydration: Adequate
[2025-06-15 07:50] VITALS: BP 149/90; PULSE 60; RESP 18; TEMP 36.7; O2SAT 97
== END 2025-06-14 11:36 | disposition home or self-care (01) ==
PROVIDERS: PCP Internal Medicine; Visit Provider Orthopaedic Surgery
PROC: [UNRECOGNIZED PROCEDURE] (CPT 24357; principal; 2025-06-14 09:15)
DX: M77.11 Lateral epicondylitis, right elbow (principal); Z79.899 Other long term (current) drug therapy
CPT/HCPCS: 24357; 96374; J0665; J0690; J1100; J1885; J2003; J2250; J2405; J2704; J3010; J7120

== ENCOUNTER 2025-07-27 11:31 | Outpatient (CLI) | payer BC, SELFPAY ==
--- NOTE | 2025-07-27 11:35 | XR_ITS ---
FINAL REPORT CLINICAL HISTORY: right elbow pain // surgery x 6 weeks ago COMPARISON: None FINDINGS: RIGHT ELBOW Three views demonstrate no acute fracture or dislocation. The joint spaces appear normal. There is no joint effusion. No acute soft tissue abnormality is seen. IMPRESSION: No acute bony abnormality. Reviewed, Interpreted and Dictated by Gerard Freeman MD Transcribed by Estrella Holt Authenticated and [facility]
== END 2025-07-27 23:59 | disposition home or self-care (01) ==
LOC: RAD 11:31
PROVIDERS: PCP Internal Medicine; Visit Provider Orthopaedic Surgery
DX: M25.521 Pain in right elbow (principal); Z98.890 Other specified postprocedural states
CPT/HCPCS: 73080

== ENCOUNTER 2025-10-05 16:53 | Outpatient (CLI) | payer BC, SELFPAY ==
--- NOTE | 2025-10-05 16:55 | XR_ITS ---
PROCEDURE INFORMATION: Exam: XR Left Femur Exam date and time: 10/05/2025 4:59 PM Age: 45 years old Clinical indication: Pain; Thigh; Left; Additional info: Leg pain. Pain distal femur above knee. Nki TECHNIQUE: Imaging protocol: Radiologic exam of the left femur. Views: 2 views. COMPARISON: No relevant prior studies available. FINDINGS: Bones/joints: Left-sided os acetabula. 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 No acute fracture or dislocation. Soft tissues: Unremarkable. Vasculature: Vascular calcifications. IMPRESSION: No acute fracture or dislocation.
== END 2025-10-05 23:59 | disposition home or self-care (01) ==
LOC: RAD 16:53
PROVIDERS: PCP Internal Medicine; Visit Provider Internal Medicine
DX: M79.605 Pain in left leg (principal)
CPT/HCPCS: 73552